=== PATIENT | female | born 1965 | race Caucasian/White ===

== ENCOUNTER 2025-02-22 08:46 | Observation (INO) ==
--- NOTE | 2025-02-22 09:19 | Emergency Department Note ---
Impression & Plan Cellulitis of right leg, Marfan syndrome, On warfarin therapy ED Provider Note NAME: JUSTIN MONTOYA AGE: 59 SEX: F : 1965 ARRIVES VIA: Walk-In INFORMANT: Patient ED PROVIDER(S): Chris Razo MD CHIEF COMPLAINT: Cellulitis, referred. PLAN: Disposition: Admit MEDICAL DECISION MAKING: The patient is a pleasant 59-year-old woman with a past medical history of Marfan syndrome, history of aortic dissection, status post mechanical aortic valve repair on warfarin, hypertension who presents to the emergency department via walk-in for evaluation and treatment of cellulitis of her right lower leg which is been ongoing for the past week or so where she reports she was seen in urgent care and started on Bactrim but had no improvement. She was [place] [facility] was [place] a family member and decided to have this reassessed. She was started on clindamycin in addition to her Bactrim but denies any improvement. The patient wonders whether or not this may have been triggered by minor scratch by her small dogs but denies ever having any wounds. She subsequently saw her PCP office today and was referred to emergency department for admission and IV antibiotics. Patient reports having a history of penicillin allergy as a child where she developed hives. She understands that she also developed hives following prophylactic antibiotics after her aortic surgery and under still would that this was a cephalosporin but acknowledges that she was not aware of whether or not this was a concern for the entire class or not and is in agreement of trying different generations to assess for tolerance. She has any fevers, chills, GI or symptoms. She denies any difficulty bearing weight on her right lower extremity or ranging her ankle. Of note, she notes her INR was elevated yesterday above 4 and so she held her dose yesterday evening. On evaluation patient no distress, afebrile stable vital signs. She exhibits erythema of the distal right lower leg/ankle extending medially. There is mild warmth and edema without induration or crepitus. WBC 4K without neutrophilia or left shift. ESR is mildly elevated at 35 and CRP 7.5, nonspecific. Chemistry without metabolic acidosis. INR 3.4. Broaden antibiotic coverage initiated with IV ceftriaxone and daptomycin. [facility], with Dr. Bertrand [facility] hospitalist who will evaluate the patient for admission. Further management per admitting team. Triage Nursing notes reviewed and agree them. Prior/external medical records reviewed Vital Signs: reviewed Differential diagnosis: Cellulitis, abscess, MRSA infection, DVT, necrotizing fasciitis, dermatitis, drug eruption, allergic reaction, as well as other pathologies. ER treatment provided: See below. Diagnostics interpreted by me: Cardiac Monitoring: An order for continuous cardiac monitoring was placed and demonstrated normal sinus rhythm, 84 bpm, no ectopy. Laboratory studies: See below Consultation(s): Case was discussed with Denise Morales, [facility] PAC, with Dr. Bertrand [facility] hospitalist who will evaluate the patient for admission. HPI: Per MDM. ROS: See above HPI for pertinent positives & negatives. A total of 10 systems reviewed and were otherwise negative. VITALS:See Below PHYSICAL EXAMINATION: GENERAL: Awake, alert, well-appearing, in no distress HENT: Normocephalic, atraumatic. Oropharynx with dry mucous membranes and otherwise unremarkable. EYES: Normal conjunctiva. Sclera non-icteric. NECK: Supple. No nuchal rigidity. FROM. No JVD. RESPIRATORY: Clear to auscultation. CARDIAC: Regular rate, normal rhythm. Extremities warm and well perfused. Pulses equal. ABDOMEN: Soft, non-distended. No tenderness to palpation. No rebound or guarding. No masses. MUSCULOSKELETAL: Chest examination reveals no tenderness. The back is symmetrical on inspection without obvious abnormality. There is no CVA tenderness to palpation. No joint edema. LOWER EXTREMITIES: Erythema of the distal right lower leg/ankle extending medially. There is mild warmth and edema without induration or crepitus. NEURO: Normal sensorium. No sensory or motor deficits noted. SKIN: No rash or jaundice noted. 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 Beliefs That Will Affect Care: None marital status: Current Living Situation: Spouse current occupational status: employed Feels Safe at Home: Yes Assistive Devices: Glasses Allergies Allergies Allergy/AdvReac Type Severity Reaction Status Date / Time Iodinated Contrast Media Allergy Anaphylaxis Verified 06/26/18 08:54 [Iodinated Contrast- Oral and IV Dye] Penicillins Allergy Hives Verified 06/26/18 08:53 Home Meds Home Medications Medication Instructions Recorded Confirmed aspirin 81 mg tablet,delayed 0 mg PO DAILY 06/26/18 02/22/25 release cetirizine 10 mg tablet (Zyrtec) 0 mg PO DAILY 06/26/18 02/22/25 cholecalciferol (vitamin D3) 25 0 unit PO DAILY 06/26/18 02/22/25 mcg (1,000 unit) tablet (Vitamin D3) diltiazem HCl 120 mg 120 mg PO DAILY 06/26/18 02/22/25 capsule,extended release 12 hr hydrochlorothiazide 12.5 mg tablet 12.5 mg PO DAILY 06/26/18 02/22/25 alprazolam 0.5 mg tablet 0.5 mg PO BID PRN Other 02/22/25 02/22/25 desvenlafaxine succinate 100 mg 100 mg PO DAILY 02/22/25 02/22/25 tablet,extended release 24 hr fluticasone propionate 230 2 puff inhalation BID 02/22/25 02/22/25 mcg-salmeterol 21 mcg/actuation HFA inhaler losartan 50 mg tablet 50 mg PO DAILY 02/22/25 02/22/25 warfarin 6 mg tablet 6 mg PO UD 02/22/25 02/22/25 Results & Data (ED) Vital Signs Vital Signs - 24 hr 02/22/25 08:52 02/22/25 10:16 Temperature 36.1 C L Temperature Source Temporal Artery Scan Pulse Rate 84 Pulse Rate [Left Finger] 72 Respiratory Rate 20 20 Respiratory Effort / Characteristics Non-Labored Spontaneous Non-Labored Spontaneous Respiratory Depth Normal Normal Respiratory Pattern Regular Regular Blood Pressure 121/66 Blood Pressure [Left Arm] 155/64 H Blood Pressure Mean 84 Blood Pressure Mean [Left Arm] 94 Pulse Oximetry 95 96 Oxygen Delivery Method Room Air Room Air Sepsis Recent Fever Within 48 Hours No Sepsis New/Unexplained Change in Mental Status N/A Sepsis Action Taken by Nursing No Action Required Laboratory Data Attestation: I reviewed the patient's lab results. 02/22/25 09:04 02/22/25 09:04 Lab Results 02/22/25 Range/Units 09:04 WBC 4.02 L (4.8-10.8) K/ul RBC 4.51 (4.20-5.40) M/uL Hgb 12.7 (12.0-16.0) g/dl Hct 39.7 (37.0-47.0) % MCV 88.0 (80.0-100.0) fL MCH 28.2 (25.0-34.0) pg MCHC 32.0 (32.0-36.0) g/dL RDW Std Deviation 47.3 H (36.4-46.3) fL RDW Coeff of Crow 14.6 H (11.5-14.5) % Plt Count 337 (130-400) K/uL MPV 10.2 (9.4-12.4) fL Immature Gran % (Auto) 0.2 % Neut % (Auto) 60.8 % Lymph % (Auto) 21.6 % [place] % (Auto) 14.4 % Eos % (Auto) 2.0 % Baso % (Auto) 1.0 % Neut # (Auto) 2.44 (1.40-6.50) K/uL Lymph # (Auto) 0.87 L (1.20-3.40) K/uL [place] # (Auto) 0.58 (0.11-0.59) K/uL Eos # (Auto) 0.08 (0.00-0.50) K/uL Baso # (Auto) 0.04 (0.00-0.20) K/uL Immature Gran # (Auto) 0.01 (0.01-0.20) K/uL ESR 35 H (0-30) mm/hr PT 33.2 H (9.0-12.0) Seconds INR 3.4 H (0.9-1.1) Sodium 137 (136-145) mmol/L Potassium 3.8 (3.5-5.1) mmol/L Chloride 104 (98-107) mmol/L Carbon Dioxide 27 (21-32) mmol/L Anion Gap 6 (3-11) BUN 19 (6-23) mg/dl Creatinine 0.74 (0.6-1.2) mg/dl Est Cr Clr Drug Dosing 84.5 ml/min eGFR 92.57 BUN/Creatinine Ratio 25.7 H (10-20) Glucose 91 (70-99(Fasting)) mg/dl Calcium 8.6 (8.6-10.3) mg/dl Total Bilirubin 0.3 (0.2-1.0) mg/dl AST 25 (13-39) U/L ALT 15 (7-52) U/L Alkaline Phosphatase 86 (34-104) U/L C-Reactive Protein 7.44 H (0-0.5) mg/dl Total Protein 7.1 (6.0-8.3) gm/dl Albumin 4.2 (3.4-5.0) gm/dl Globulin 2.9 (2.5-4.0) gm/dl Albumin/Globulin Ratio 1.4 (0.9-2) Administered Medications Alprazolam (Alprazolam 0.25 Mg Tablet) 0.25 mg PO BID PRN PRN Reason: Anxiety/Insomnia Stop: 03/24/25 14:06 Last Admin: 02/22/25 21:06 Dose: 0.25 mg Documented By: SP Diltiazem HCl (Diltiazem Hcl 120 Mg Capcr) 120 mg PO BID [facility] Stop: 03/24/25 20:59 Last Admin: 02/22/25 21:06 Dose: 120 mg Documented By: SP Miscellaneous (Desvenlafaxine 100mg: Order Awaiting Action) 1 each N/A QS [facility] Stop: 03/24/25 15:59 Last Admin: 02/22/25 18:19 Dose: Not Given Documented By: AU Oxycodone HCl (Oxycodone Hcl Ir 5 Mg Tab (Immediate Release)) 5 mg PO Q4H PRN PRN Reason: Moderate Pain (Scale 4, 5, 6) Stop: 03/08/25 14:06 Last Admin: 02/22/25 15:34 Dose: 5 mg Documented By: AVM Discontinued Medications Sodium Chloride (Nss) 1,000 mls @ 999 mls/hr IV .Q1H1M ONE Stop: 02/22/25 10:13 Last Infusion: 02/22/25 11:00 Dose: Infused Documented By: Admin: 02/22/25 09:35 Dose: 999 mls/hr Documented By: KHOA Ceftriaxone Sodium (Rocephin) 2,000 mg in 50 mls @ 100 mls/hr IV NOW STA Stop: 02/22/25 09:46 Last Infusion: 02/22/25 10:59 Dose: Infused Documented By: Admin: 02/22/25 09:35 Dose: 100 mls/hr Documented By: KHOA Daptomycin 525 mg/ Syringe 10.5 mls @ 5.25 mls/min IV NOW STA; Protocol Stop: 02/22/25 09:19 Last Admin: 02/22/25 10:14 Dose: 5.25 mls/min Documented By: KHOA Acetaminophen (Ofirmev) 1,000 mg in 100 mls @ 400 mls/hr IV NOW STA Stop: 02/22/25 09:32 Last Infusion: 02/22/25 11:00 Dose: Infused Documented By: Admin: 02/22/25 09:55 Dose: 400 mls/hr Documented By: KHOA Discharge Plan Visit Data Chief Complaint: Infection Stated Complaint: R LEG CELLULITIS, AROUND ANKLE AND SPREADING UP ED Provider: Chris Razo Discharge Problem: Cellulitis of right leg, Marfan syndrome, On warfarin therapy Patient Disposition: Admitted As Inpatient Condition: Fair Discharge Instructions Interventions: ED Discharge Assessment Last Done: 02/22/25 16:25
[2025-02-22 09:33] LABS: Hematocrit (blood only) 39.7 % (37.0-47.0); Hemoglobin 12.7 g/dl (12.0-16.0); Immature Granulocytes # (auto) 0.01 K/uL (0.01-0.20); Immature Granulocytes % (auto) 0.2 %; Mean Corpuscular Hemoglobin 28.2 pg (25.0-34.0); Mean Corpuscular Volume 88.0 fL (80.0-100.0); Platelet Count 337 K/uL (130-400); RDW Standard Deviation 47.3 fL (36.4-46.3); Red Blood Count 4.51 M/uL (4.20-5.40); White Blood Count 4.02 K/ul (4.8-10.8)
[2025-02-22] MEDS: cefTRIAXone SODIUM 2,000 MG/50 ML BAG IV STA (09:35)
[2025-02-22] MEDS: SODIUM CHLORIDE 0.9% 1,000 ML IV ONE (09:35)
[2025-02-22 09:47] LABS: INR 3.4 (0.9-1.1); Prothrombin Time 33.2 Seconds (9.0-12.0)
[2025-02-22 09:53] LABS: Alanine Aminotransferase 15.0 U/L (7-52); Albumin Globulin Ratio 1.4 (0.9-2); Alkaline Phosphatase 86.0 U/L (34-104); Anion Gap 6.0 (3-11); Bilirubin,Total 0.3 mg/dl (0.2-1.0); Blood Urea Nitrogen 19.0 mg/dl (6-23); Calcium 8.6 mg/dl (8.6-10.3); Carbon Dioxide 27.0 mmol/L (21-32); Chloride 104.0 mmol/L (98-107); Creatinine Clr Calc Pharmacy 84.5 ml/min; Globulin 2.9 gm/dl (2.5-4.0); Glucose 91.0 mg/dl (70-99(Fasting)); Potassium 3.8 mmol/L (3.5-5.1); Sodium 137.0 mmol/L (136-145); Total Protein 7.1 gm/dl (6.0-8.3)
[2025-02-22] MEDS: ACETAMINOPHEN 1,000 MG/100 ML VIAL IV STA (09:55)
[2025-02-22] MEDS: DAPTOmycin 525 MG in SYRINGE 0 ML IV STA (10:14)
--- NOTE | 2025-02-22 10:24 | History & Physical Report ---
Date of Service February 22, 2025 Assessment & Plan (1) Cellulitis of right leg: (2) History of heart valve replacement with mechanical valve: (3) Aortic dissection: (4) Marfan syndrome: (5) Hypertension: (6) Asthma: Plan 59yo female presented after failure of outpatient antibiotics with Bactrim/Clindamycin since this past requiring admission for treatment of cellulitis with IV antibiotics. ?related to possible scratch from dogs with feeding but no clear opening. No recent tick bites/fever/chills. On coumadin w/ mechanical aortic valve replacement and INR never below goal and actually 4.3 yesterday and held last evening with INR 3.4 today with goal 2-3. Suspect eleva tion in setting o bactrim use, no bleeding reported and is on baby aspirin 81mg daily. #RLE Cellulitis Admit med/surg Continue Ceftriaxone/Daptmycin (received ceftriaxone in ER, monitor for any issues w/ PCN allergy, will make benadryl available prn/patient to notify of any issues) Elevation Pain control Antiemetic as needed Wound care PT eval to ensure no needs at dc Monitor labs/exam on repeat, defer imaging at this time and will monitor response to IV abx #Aortic valve replacement, chronic anticoagulation use Aortic valve placement >10 years ago, also aorta repair for dissection On coumadin 6mg daily, follows [facility] INR 3.4 on admission, reports was 4.3 prior this weekend but held her dose last evening - suspect INR in AM to be in goal but with ongoing antibiotics will order for 02/23 unless felt otherwise by supervising provider during evaluation Monitor daily INR #HTN - continue diltiazem 120mg, reports taking twice daily and have adjusted such. Also on losartan 50mg dialy. BP stable/monitoring on home medications #HLD - no longer on statin, maintained with diet/exercise per patient. #Mood/depression - stable, on pristiq and non-formulary. Asked to see if able to bring in. Have continued low dose xanax BID prn as takes half tablet as needed. DVT proph: INR above goal, no concerns for DVT at this time. Coumadin coumadin in AM/INR daily. Dispo: admit med/surg for IV antibiotics. PT consulted for completeness History of Present Illness Chief Complaint: right leg swelling/redness, failure outpatient antibiotics Primary Care Provider: Gosia Ye, OTR 59yo female with PMHx marfans, aortic dissection/aortic valve replacement, HTN, HLD presented with redness/swelling to the right lower leg since this past concerning for cellulitis. Allergy to PCN w/ hives. Initially placed on Bactrim by PCP but without improvement but placed on Clindamycin on Saturday morning. Patient evaluated in C7, currently resting in bed. Reports being hungry. No pain at present but reports was on Bactrim since this past and did not have any improvement and was traveling this weekend and went to [facility] as did not have improvement and they added Clindamycin. She has cantu on her leg for the "dark red" and "light red" from the cellulitis. Reports history of cellulitis over a decade ago. No antibiotic resistance reported in the past. Tolerated the ER antibiotics and discussed admission for continued antibiotics/monitoring. No history of gout. No trauma/open wound but does report she has dogs and that they get excited during feeding time and that she might have had a faint scratch as the source initially. On coumadin 6mg daily but held her dose last evening. Reports INR was 4.3 yesterday, currently 3.4. Goal INR 2-3 for history mechanical aortic valve (as well as grafting aorta due to dissection). No history of clot in the past but does report has had positive ddimer in the past. No fever/chills, chest pain, shortness of breath, abdominal pain, nausea/vomiting/diarrhea at this time. Confirmed home medications: Diltiazem 120mg BID HCTZ 12.5mg ISMN -- NO MORE Losartan 50mg once daily Pristiq 100mg -- someone to bring in as non-formulary Simvastatin - no longer, refuses, control through diet. Coumadin 6mg daily Aspirin 81mg Lamotrigine 100mg daily Xanax 0.5mg -- 1/2 tablet as needed Given Ceftriaxone/Daptomycin in ER. Agreeable to admission for ongoing antibiotic for cellulitis. Hungry and hasn't eaten yet today, RN in ER notified to provide something in meantime. Full code as discussed. Allergies Allergy/AdvReac Type Severity Reaction Status Date / Time Iodinated Contrast Media Allergy Anaphylaxis Verified 06/26/18 08:54 [Iodinated Contrast- Oral and IV Dye] Penicillins Allergy Hives Verified 06/26/18 08:53 Home Medications Medication Instructions Recorded Confirmed Type aspirin 81 mg tablet,delayed 0 mg PO DAILY 06/26/18 02/22/25 History release cetirizine 10 mg tablet (Zyrtec) 0 mg PO DAILY 06/26/18 02/22/25 History cholecalciferol (vitamin D3) 25 0 unit PO DAILY 06/26/18 02/22/25 History mcg (1,000 unit) tablet (Vitamin D3) diltiazem HCl 120 mg 120 mg PO DAILY 06/26/18 02/22/25 History capsule,extended release 12 hr hydrochlorothiazide 12.5 mg tablet 12.5 mg PO DAILY 06/26/18 02/22/25 History alprazolam 0.5 mg tablet 0.5 mg PO BID PRN Other 02/22/25 02/22/25 History desvenlafaxine succinate 100 mg 100 mg PO DAILY 02/22/25 02/22/25 History tablet,extended release 24 hr fluticasone propionate 230 2 puff inhalation BID 02/22/25 02/22/25 History mcg-salmeterol 21 mcg/actuation HFA inhaler losartan 50 mg tablet 50 mg PO DAILY 02/22/25 02/22/25 History warfarin 6 mg tablet 6 mg PO UD 02/22/25 02/22/25 History Past Med/Surg History Problem List (Updated 02/22/25 @ 10:57 by Denise Morales PA-C) Cellulitis of right leg Medical History Hypertension Asthma Aortic dissection Marfan syndrome Surgical History Status post aortic dissection repair History of heart valve replacement with mechanical valve Social History Smoking Status: Never smoker Hx Alcohol Use: Yes Hx Substance Use: No marital status: Current Living Situation: Spouse current occupational status: employed Feels Safe at Home: Yes Review of Systems Review of Systems: All systems reviewed & are unremarkable except as noted in HPI & below Physical Exam Physical Exam: General: 59yo female, marfanoid appearance, laying in bed, NAD HEENT: head atraumatic, normocephalic, mmm, trachea midline Resp: even/unlabored, no wheezing/rales, on room air CV: regular, +systolic click c/w aortic valve replacement, no pitting edema/calf tenderness, pulses present, cap refill wnl GI: +BS, slight distended but soft/nontender no french MSK/Neuro/Skin: not confused, no slurred speech, answering questions appropriately RLE w/ erythema from ankle to mid gutierrez, within markings +tenderness/warmth, edema to mid gutierrez - some blistering to medial ankle No purulent drainage/open lesions at this time pulses present/intact, cap refill wnl Psych: AOx3, cooperative with exam Results & Data Results & Data Vital Signs (Past 12 Hours) Vital Signs Temp Pulse Pulse Resp BP BP Pulse Ox 02/22/25 10:16 72 20 155/64 H 96 02/22/25 08:52 36.1 C L 84 20 121/66 95 O2 Del Method 02/22/25 10:16 Room Air 02/22/25 08:52 Room Air Laboratory Results 02/22/25 Range/Units 09:04 WBC 4.02 L (4.8-10.8) K/ul RBC 4.51 (4.20-5.40) M/uL Hgb 12.7 (12.0-16.0) g/dl Hct 39.7 (37.0-47.0) % MCV 88.0 (80.0-100.0) fL MCH 28.2 (25.0-34.0) pg MCHC 32.0 (32.0-36.0) g/dL RDW Std Deviation 47.3 H (36.4-46.3) fL RDW Coeff of Crow 14.6 H (11.5-14.5) % Plt Count 337 (130-400) K/uL MPV 10.2 (9.4-12.4) fL Immature Gran % (Auto) 0.2 % Neut % (Auto) 60.8 % Lymph % (Auto) 21.6 % [place] % (Auto) 14.4 % Eos % (Auto) 2.0 % Baso % (Auto) 1.0 % Neut # (Auto) 2.44 (1.40-6.50) K/uL Lymph # (Auto) 0.87 L (1.20-3.40) K/uL [place] # (Auto) 0.58 (0.11-0.59) K/uL Eos # (Auto) 0.08 (0.00-0.50) K/uL Baso # (Auto) 0.04 (0.00-0.20) K/uL Immature Gran # (Auto) 0.01 (0.01-0.20) K/uL ESR 35 H (0-30) mm/hr PT 33.2 H (9.0-12.0) Seconds INR 3.4 H (0.9-1.1) Sodium 137 (136-145) mmol/L Potassium 3.8 (3.5-5.1) mmol/L Chloride 104 (98-107) mmol/L Carbon Dioxide 27 (21-32) mmol/L Anion Gap 6 (3-11) BUN 19 (6-23) mg/dl Creatinine 0.74 (0.6-1.2) mg/dl Est Cr Clr Drug Dosing 84.5 ml/min eGFR 92.57 BUN/Creatinine Ratio 25.7 H (10-20) Glucose 91 (70-99(Fasting)) mg/dl Calcium 8.6 (8.6-10.3) mg/dl Total Bilirubin 0.3 (0.2-1.0) mg/dl AST 25 (13-39) U/L ALT 15 (7-52) U/L Alkaline Phosphatase 86 (34-104) U/L C-Reactive Protein 7.44 H (0-0.5) mg/dl Total Protein 7.1 (6.0-8.3) gm/dl Albumin 4.2 (3.4-5.0) gm/dl Globulin 2.9 (2.5-4.0) gm/dl Albumin/Globulin Ratio 1.4 (0.9-2) Supervising Physician Co-Signing Physician Notes The patient was seen by me. The chart was reviewed. Case discussed with KIRK Giron. Agree with assessment and plan PG Care Time/CCT Total # of Minutes Spent Total Time Spent with Patient: Total time spent is greater than 50% in coordination of care (as documented) at patient's floor/unit and/or counseling patient: Coding Level of Care Code 76182 INT INP/OBS CARE MIN Diagnoses Cellulitis of right leg L03.115 History of heart valve replacement with mechanical valve Z95.2 Aortic dissection I71.00 Marfan syndrome Q87.40 Hypertension I10 Asthma J45.909
[2025-02-22] MEDS ORDERED: ONDANSETRON INJ 2 MG/ML 2 ML VIAL IV PRN (10:52)
[2025-02-22] MEDS ORDERED: ACETAMINOPHEN 500 MG TAB PO PRN (14:07)
[2025-02-22] MEDS ORDERED: diphenhydrAMINE 50 MG/ML VIAL IV PRN (14:07)
[2025-02-23 05:36] LABS: Hematocrit (blood only) 36.6 % (37.0-47.0); Hemoglobin 11.8 g/dl (12.0-16.0); Immature Granulocytes # (auto) 0.01 K/uL (0.01-0.20); Immature Granulocytes % (auto) 0.2 %; Mean Corpuscular Hemoglobin 28.3 pg (25.0-34.0); Mean Corpuscular Volume 87.8 fL (80.0-100.0); Platelet Count 285 K/uL (130-400); RDW Standard Deviation 46.4 fL (36.4-46.3); Red Blood Count 4.17 M/uL (4.20-5.40); White Blood Count 4.06 K/ul (4.8-10.8)
[2025-02-23 05:56] LABS: Alanine Aminotransferase 13.0 U/L (7-52); Albumin Globulin Ratio 1.4 (0.9-2); Alkaline Phosphatase 68.0 U/L (34-104); Anion Gap 5.0 (3-11); Bilirubin,Total 0.3 mg/dl (0.2-1.0); Blood Urea Nitrogen 20.0 mg/dl (6-23); Calcium 8.1 mg/dl (8.6-10.3); Carbon Dioxide 27.0 mmol/L (21-32); Chloride 107.0 mmol/L (98-107); Creatinine Clr Calc Pharmacy 88.1 ml/min; Globulin 2.4 gm/dl (2.5-4.0); Glucose 93.0 mg/dl (70-99(Fasting)); Magnesium 2.0 mg/dl (1.7-2.4); Potassium 3.4 mmol/L (3.5-5.1); Sodium 139.0 mmol/L (136-145); Total Protein 5.8 gm/dl (6.0-8.3)
[2025-02-23 06:12] LABS: INR 2.0 (0.9-1.1); Prothrombin Time 20.2 Seconds (9.0-12.0)
--- NOTE | 2025-02-23 07:50 | Hospitalist Progress Note ---
Date of Service February 23, 2025 Assessment & Plan (1) Cellulitis of right leg: (2) History of heart valve replacement with mechanical valve: (3) Aortic dissection: (4) Marfan syndrome: (5) Hypertension: (6) Asthma: Plan 59yo female presented after failure of outpatient antibiotics with Bactrim/Clindamycin since this past requiring admission for treatment of cellulitis with IV antibiotics. ?related to possible scratch from dogs with feeding but no clear opening. No recent tick bites/fever/chills. On coumadin w/ mechanical aortic valve replacement and INR never below goal and actually 4.3 yesterday and held last evening with INR 3.4 today with goal 2-3. Suspect eleva tion in setting o bactrim use, no bleeding reported and is on baby aspirin 81mg daily. #RLE Cellulitis Continue Ceftriaxone/Daptomycin Pain control -- trial toradol 10mg IV x 1 for inflammation/edema/pain control. Tylenol/oxycodone available. Continue elevation Wound care Therapy evals Appears improved at this time/stable however will monitor CRP w/ AM labs. Consideration to transition to Clinda and monitor to ensure improvement as suspect just wasn't given enough time but if not will plan for further imaging for evaluation as no blood cx on admission but doesn't appear septic and was on abx prior. ?reaction to Bactrim w/ the blistered appearance/timeline ~4 days from start. Allergy to iodine and can plan for MRI w/w/o in AM if not improved as well Monitor labs/exam in AM #Aortic valve replacement, chronic anticoagulation use Aortic valve placement >10 years ago, also aorta repair for dissection On coumadin 6mg daily, follows [facility] INR 3.4 on admission (reports was 4.3 but skipped dose PM 02/21) and was held on admission INR 2.0 and to resume today/INR in AM. Can give shot Lovenox if not in range #HTN - continue diltiazem 120mg, reports taking twice daily and have adjusted such. Also on losartan 50mg dialy. BP stable/monitoring on home medications #HLD - no longer on statin, maintained with diet/exercise per patient. #Mood/depression - stable, on pristiq and non-formulary --> brought in today and sent to pharmacy Xanax available prn Lamictal 100mg daily resumed/continued DVT proph: coumadin, INR in AM Dispo: continued inpatient stay on IV abx, possible dc next 24-48hr pending response vs need for MRI/imaging Admission and Anticipated Discharge Date Admission Date: February 22, 2025 Supervising Physician Co-Signing Physician Notes The patient was not seen by me. The chart was reviewed. Case discussed with KIRK Giron. Agree with assessment and plan Subjective Eval this afternoon, at bedside. Got showered this morning, believes cellulitis might be little better but concerns about possibly not. Discussed WBC stable, afebrile. Blister like appearance to medial ankle improved. Ongoing pain/swelling/warmth, discussed trial toradol IV, agreeable. Cautious NSAIDs w/ coumadin but ok to use occasionally and will monitor for issues. Discussed abx should cover for most except pseudomonas and no hx of such but if any worsening consideration for further imaging. Hx allergy to iodine contrast, likely unable to perform CT but will consider MRI if tolerated. Discussed could also have aspect of reaction from the Bactrim given time line for symptoms and no prior use but could trial switching to Clindamycin in AM if improving/monitor on such given concerns for dc too early. brought in pristiq/home med, sent to pharmacy. INR 2.0, coumadin resuming today and monitoring. Concerns about 6mg as not eating as much greens but reassured will monitor/reach out to specalist if needed. No fever/chills, chest pain, shortness of breath, nausea/vomiting. Questions/concerns addressed at this time. Physical Exam Physical Exam: General: 59yo female, marfanoid appearance, laying in bed, NAD, at bedside, legs dependent at the side of the bed HEENT: head atraumatic, normocephalic, mmm, trachea midline Resp: even/unlabored, no wheezing/rales, on room air CV: regular, +systolic click c/w aortic valve replacement, pulses present, cap refill wnl GI: +BS, slight distended but soft/nontender no french MSK/Neuro/Skin: not confused, no slurred speech, answering questions appropriately RLE w/ erythema from ankle to mid gutierrez, no further spread up leg, appears toe sewer pink with less blistered appearance to medial ankle remains with +erythema, +warmth + tenderness but does appear improved no drainage/opening at this time pulses present, cap refill wnl Psych: AOx3, cooperative with exam Results & Data Results & Data Vital Signs (Past 12 Hours) Vital Signs Temp Pulse Resp BP Pulse Ox O2 Del Method 02/23/25 07:22 36.7 C 73 16 163/74 H 96 Room Air 02/22/25 20:02 36.9 C 75 16 114/62 94 Room Air Laboratory Results 02/23/25 02/23/25 Range/Units 05:03 04:43 WBC 4.06 L (4.8-10.8) K/ul RBC 4.17 L (4.20-5.40) M/uL Hgb 11.8 L (12.0-16.0) g/dl Hct 36.6 L (37.0-47.0) % MCV 87.8 (80.0-100.0) fL MCH 28.3 (25.0-34.0) pg MCHC 32.2 (32.0-36.0) g/dL RDW Std Deviation 46.4 H (36.4-46.3) fL RDW Coeff of Crow 14.4 (11.5-14.5) % Plt Count 285 (130-400) K/uL MPV 9.8 (9.4-12.4) fL Immature Gran % (Auto) 0.2 % Neut % (Auto) 56.4 % Lymph % (Auto) 24.1 % [place] % (Auto) 12.1 % Eos % (Auto) 6.2 % Baso % (Auto) 1.0 % Neut # (Auto) 2.29 (1.40-6.50) K/uL Lymph # (Auto) 0.98 L (1.20-3.40) K/uL [place] # (Auto) 0.49 (0.11-0.59) K/uL Eos # (Auto) 0.25 (0.00-0.50) K/uL Baso # (Auto) 0.04 (0.00-0.20) K/uL Immature Gran # (Auto) 0.01 (0.01-0.20) K/uL PT 20.2 H (9.0-12.0) Seconds INR 2.0 H (0.9-1.1) Sodium 139 (136-145) mmol/L Potassium 3.4 L (3.5-5.1) mmol/L Chloride 107 (98-107) mmol/L Carbon Dioxide 27 (21-32) mmol/L Anion Gap 5 (3-11) BUN 20 (6-23) mg/dl Creatinine 0.71 (0.6-1.2) mg/dl Est Cr Clr Drug Dosing 88.1 ml/min eGFR 97.28 BUN/Creatinine Ratio 28.2 H (10-20) Glucose 93 (70-99(Fasting)) mg/dl Calcium 8.1 L (8.6-10.3) mg/dl Magnesium 2.0 (1.7-2.4) mg/dl Total Bilirubin 0.3 (0.2-1.0) mg/dl AST 20 (13-39) U/L ALT 13 (7-52) U/L Alkaline Phosphatase 68 (34-104) U/L Total Protein 5.8 L (6.0-8.3) gm/dl Albumin 3.4 (3.4-5.0) gm/dl Globulin 2.4 L (2.5-4.0) gm/dl Albumin/Globulin Ratio 1.4 (0.9-2) Hepatitis C Ab Screen Negative (Negative) PG Care Time/CCT Total # of Minutes Spent Total Time Spent with Patient: Total time spent is greater than 50% in coordination of care (as documented) at patient's floor/unit and/or counseling patient: Coding Level of Care Code 93087 SUB INP/OBS CARE 3/50MIN Diagnoses Cellulitis of right leg L03.115 History of heart valve replacement with mechanical valve Z95.2 Aortic dissection I71.00 Marfan syndrome Q87.40 Hypertension I10 Asthma J45.909
[2025-02-23] MEDS: ASPIRIN 81 MG ECTAB PO SCH (07:51)
[2025-02-23] MEDS: LOSARTAN POTASSIUM 50 MG TAB PO SCH (07:52)
[2025-02-23] MEDS: FLUTICASONE/VILANTEROL 200/25MCG 14 PUFFS/INHALER INH SCH (07:53)
[2025-02-23] MEDS ORDERED: Nursing to Pharmacy Communication SCH (08:15)
[2025-02-23] MEDS: DAPTOmycin 450 MG in SYRINGE 0 ML IV SCH (08:16)
[2025-02-23] MEDS: POTASSIUM CHLORIDE CRTAB 20 MEQ TABCR PO STA (08:16)
[2025-02-23] MEDS: hydroCHLOROthiazide 25 MG TAB PO SCH (09:18)
[2025-02-23] MEDS: lamoTRIgine 100 MG TAB PO SCH (09:22)
[2025-02-23] MEDS: cefTRIAXone SODIUM 2,000 MG/50 ML BAG IV SCH (09:23)
[2025-02-23] MEDS: DESVENLAFAXINE SUCCINATE ER TABLET PO SCH (15:56)
[2025-02-23] MEDS: KETOROLAC TROMETHAMINE 15 MG/ML VIAL IV ONE (15:56)
[2025-02-23] MEDS: WARFARIN SOD 6 MG TAB PO SCH (15:58)
[2025-02-24 08:01] LABS: Hematocrit (blood only) 39.3 % (37.0-47.0); Hemoglobin 12.6 g/dl (12.0-16.0); Immature Granulocytes # (auto) 0.01 K/uL (0.01-0.20); Immature Granulocytes % (auto) 0.2 %; Mean Corpuscular Hemoglobin 27.9 pg (25.0-34.0); Mean Corpuscular Volume 86.9 fL (80.0-100.0); Platelet Count 331 K/uL (130-400); RDW Standard Deviation 45.0 fL (36.4-46.3); Red Blood Count 4.52 M/uL (4.20-5.40); White Blood Count 4.92 K/ul (4.8-10.8)
--- NOTE | 2025-02-24 08:07 | Hospitalist Progress Note ---
Date of Service February 24, 2025 Assessment & Plan (1) Cellulitis of right leg: (2) History of heart valve replacement with mechanical valve: (3) Aortic dissection: (4) Marfan syndrome: (5) Hypertension: (6) Asthma: Plan 59yo female presented after failure of outpatient antibiotics with Bactrim/Clindamycin since this past requiring admission for treatment of cellulitis with IV antibiotics. ?related to possible scratch from dogs with feeding but no clear opening. No recent tick bites/fever/chills. On coumadin w/ mechanical aortic valve replacement and INR never below goal and actually 4.3 yesterday and held last evening with INR 3.4 today with goal 2-3. Suspect elevation in setting o bactrim use, no bleeding reported and is on baby aspirin 81mg daily. #RLE Cellulitis Ceftriaxone/Daptomycin Pain control -tylenol/oxycodone. Toradol 10mg IV x 1 w/ reported improvement and repeat dose 15mg IV for today/prn available Elevation CRP 7.4--> 4.8 Consideration for imaging if any worsening but appears improved today - consideration to transition back to Clinda in AM vs other pending course #Aortic valve replacement, chronic anticoagulation use Aortic valve placement >10 years ago, also aorta repair for dissection On coumadin 6mg daily, follows [facility] INR 3.4 on admission (prior 4.3, held her PM dose 02/21) INR 2.0 on 02/23 and resumed coumadin 6mg INR 1.4 and ordered Lovenox 80mg BID for 02/24 and continue coumadin to bridge INR in AM #HTN - continue diltiazem 120mg BID, losartan daily BP stable 136/70 and monitoring #HLD - no longer on statin, maintained with diet/exercise per patient. #Mood/depression - stable, continue pristiq/lamictal. xanax available as needed #IV infiltration - L arm, leaking overnight and removed. Nursing reported no infiltration but does appear w/ some edema to region but pulses/sensation intact. Warm compress/elevation - monitor for any issues, have added lovenox SQ bid given INR but pulses present/doesn't appear w/ DVT at this time DVT proph: coumadin/lovenox Dispo: continued inpatient stay on IV abx and pain control and hopeful dc next 24hr pending course Admission and Anticipated Discharge Date Admission Date: February 22, 2025 Supervising Physician Co-Signing Physician Notes The patient was not seen by me. The chart was reviewed. Case discussed with KIRK Giron. Agree with assessment and plan Subjective Patient evaluated this morning, resting in bed. Believes leg improving, able to bear weight on it without as much pain, appears less red/warm. Did discuss INR/Lovenox injections which she reports she dislikes but understands and also reports going to eat less leafy greens today. She reports wanting to continue with IV abx for another day prior to home. IV infiltrated/leaking to LUE but initially wanted to hold off another IV but did believe toradol helpful and agreeable to placement to receive. No fever/chills, chest pain/sob reported. Questions/concerns addressed at this time. Physical Exam 2 Physical Exam: General: 59yo female sitting up in bed, NAD, reports feeling better/able to ambulate a little better today, marfan appearance HEENT: head atraumatic, normocephalic, mmm, trachea midline Resp: even/unlabored, no wheezing/rales, on room air CV: regular, +systolic click c/w aortic valve replacement, pulses present, cap refill wnl LUE - IV site infiltrated, pulses/sensation intact GI: +BS, soft/NT no french MSK/Neuro/Skin: not confused, no slurred speech, answering questions appropriately, moving all extremities RLE w/ improvement in erythema, in markings, less pink/warm, decreased tenderness to medial ankle, much improved on lateral ankle, no further blistered appearance pulses present, cap refill wnl Psych: AOx3, cooperative with exam Results & Data Results & Data Vital Signs (Past 12 Hours) Vital Signs Temp Pulse Resp BP Pulse Ox O2 Del Method 02/24/25 07:19 36.5 C 71 15 136/70 95 Room Air Laboratory Results 02/24/25 07:28 02/24/25 07:28 INR 1.4 CRP 4.85 PG Care Time/CCT Total # of Minutes Spent Total Time Spent with Patient: Total time spent is greater than 50% in coordination of care (as documented) at patient's floor/unit and/or counseling patient: Coding Level of Care Code 39893 SUB INP/OBS CARE 3/50MIN Diagnoses Cellulitis of right leg L03.115 History of heart valve replacement with mechanical valve Z95.2 Aortic dissection I71.00 Marfan syndrome Q87.40 Hypertension I10 Asthma J45.909
[2025-02-24 08:22] LABS: Anion Gap 6.0 (3-11); Blood Urea Nitrogen 21.0 mg/dl (6-23); Calcium 8.5 mg/dl (8.6-10.3); Carbon Dioxide 29.0 mmol/L (21-32); Chloride 104.0 mmol/L (98-107); Creatinine Clr Calc Pharmacy 91.9 ml/min; Glucose 95.0 mg/dl (70-99(Fasting)); Potassium 4.2 mmol/L (3.5-5.1); Sodium 139.0 mmol/L (136-145)
[2025-02-24 08:24] LABS: INR 1.4 (0.9-1.1); Prothrombin Time 15.2 Seconds (9.0-12.0)
[2025-02-24] MEDS: ENOXAPARIN 80 MG/0.8 ML SYR SQ SCH (10:17)
[2025-02-24] MEDS: KETOROLAC TROMETHAMINE 15 MG/ML VIAL IV PRN (10:17)
[2025-02-25 06:16] LABS: Hematocrit (blood only) 38.3 % (37.0-47.0); Hemoglobin 12.2 g/dl (12.0-16.0); Mean Corpuscular Hemoglobin 28.1 pg (25.0-34.0); Mean Corpuscular Volume 88.2 fL (80.0-100.0); Platelet Count 320 K/uL (130-400); RDW Standard Deviation 45.2 fL (36.4-46.3); Red Blood Count 4.34 M/uL (4.20-5.40); White Blood Count 3.76 K/ul (4.8-10.8)
[2025-02-25 06:33] LABS: Anion Gap 5.0 (3-11); Blood Urea Nitrogen 25.0 mg/dl (6-23); Calcium 8.5 mg/dl (8.6-10.3); Carbon Dioxide 30.0 mmol/L (21-32); Chloride 105.0 mmol/L (98-107); Creatinine Clr Calc Pharmacy 93.3 ml/min; Glucose 93.0 mg/dl (70-99(Fasting)); Potassium 3.9 mmol/L (3.5-5.1); Sodium 140.0 mmol/L (136-145); Uric Acid 4.7 mg/dl (2.6-7.2)
[2025-02-25 07:10] LABS: INR 1.6 (0.9-1.1); Prothrombin Time 16.9 Seconds (9.0-12.0)
[2025-02-25 07:27] VITALS: RESP 16
--- NOTE | 2025-02-25 07:52 | Hospitalist Progress Note ---
Date of Service February 25, 2025 Assessment & Plan (1) Cellulitis of right leg: (2) History of heart valve replacement with mechanical valve: (3) Aortic dissection: (4) Marfan syndrome: (5) Hypertension: (6) Asthma: Plan 59yo female presented after failure of outpatient antibiotics with Bactrim/Clindamycin since this past requiring admission for treatment of cellulitis with IV antibiotics. ?related to possible scratch from dogs with feeding but no clear opening. No recent tick bites/fever/chills. On coumadin w/ mechanical aortic valve replacement and INR never below goal and actually 4.3 yesterday and held last evening with INR 3.4 today with goal 2-3. Suspect eleva tion in setting o bactrim use, no bleeding reported and is on baby aspirin 81mg daily. #RLE Cellulitis Ceftriaxone/Daptomycin IV CRP trending down, 7.4--> 4.8 -> 3.6 Pain control, toradol effective, additional 15mg IV for today. Uric not elevated 4.7 Continue elevation, marking Transitioning to Clindamycin PO for 02/26 AM and if continued improvement can plan to dc on course given supervising provider believes should have covered but possibly not given enough time. Monitor for additional med change/need for imaging #Aortic valve replacement, chronic anticoagulation use Aortic valve placement >10 years ago, also aorta repair for dissection On coumadin 6mg daily, follows [facility] INR 3.4 on admission (prior 4.3, held her PM dose 02/21) INR 2.0 on 02/23 and resumed coumadin 6mg INR 1.4 and ordered Lovenox 80mg BID for 02/24 and continue coumadin to bridge--> INR 1.6 and continues w/ Lovenox and monitoring INR in AM #HTN - continue diltiazem 120mg BID, losartan daily and BP 122/78 and has been continued #HLD - no longer on statin, maintained with diet/exercise per patient. #Mood/depression - stable, continue pristiq/lamictal. xanax available as needed #IV infiltration - L arm, leaking overnight and removed 02/24 Nursing reported no infiltration but does appear w/ some edema to region but pulses/sensation intact. Warm compress/elevation - monitor for any issues, have added lovenox SQ bid given INR but pulses present/doesn't appear w/ DVT at this time Dispo: continued inpatient stay and transitioning to PO abx for am/monitoring through afternoon but if continued improvement by lunch can plan to dc on PO to complete course Remains on lovenox until INR in range Admission and Anticipated Discharge Date Admission Date: February 22, 2025 Supervising Physician Co-Signing Physician Notes The patient was not seen by me. The chart was reviewed. Case discussed with KIRK Giron. Agree with assessment and plan Subjective Eval this morning, cellulitis/pain improved. Discussed additional dose Toradol. Lovenox has been continued. CRP trending down. Discussed transition to Clinda in AM if continued improvement after lunch w/ switch can plan to dc to complete the course. Questions/concerns addressed at this time, support provided for her mom who is on hospice[place] Also inquired if knew any functional medicine doctors in the area, will inquire w/ partners to see if any known individuals locally. Physical Exam Physical Exam: General: 59yo female sitting up in bed, on the phone, NAD HEENT: head atraumatic, mmm, trachea midline Resp: even/unlabored, no wheezing/rales, on room air CV: regular, +systolic click c/w aortic valve replacement, pulses present, cap refill wnl LUE - IV site infiltrated, pulses/sensation intact GI: +BS, soft/NT no french MSK/Neuro/Skin: not confused, no slurred speech, answering questions appropriately, moving all extremities RLE w/ improvement in erythema, within markings, less edematous, less erythema/warmth, no streaking up leg, lateral ankle almost resolved, medial ankle w/ some purplish scab/healing blisters, no open/drainage, cap refill wnl, no appreciable abscess/fluid collection Psych: AOx3, cooperative with exam Results & Data Results & Data Vital Signs (Past 12 Hours) Vital Signs Temp Pulse Resp BP Pulse Ox O2 Del Method 02/25/25 07:25 36.7 C 87 16 122/78 92 Room Air Laboratory Results 02/25/25 Range/Units 05:55 WBC 3.76 L (4.8-10.8) K/ul RBC 4.34 (4.20-5.40) M/uL Hgb 12.2 (12.0-16.0) g/dl Hct 38.3 (37.0-47.0) % MCV 88.2 (80.0-100.0) fL MCH 28.1 (25.0-34.0) pg MCHC 31.9 L (32.0-36.0) g/dL RDW Std Deviation 45.2 (36.4-46.3) fL RDW Coeff of Crow 14.0 (11.5-14.5) % Plt Count 320 (130-400) K/uL MPV 9.2 L (9.4-12.4) fL PT 16.9 H (9.0-12.0) Seconds INR 1.6 H (0.9-1.1) Sodium 140 (136-145) mmol/L Potassium 3.9 (3.5-5.1) mmol/L Chloride 105 (98-107) mmol/L Carbon Dioxide 30 (21-32) mmol/L Anion Gap 5 (3-11) BUN 25 H (6-23) mg/dl Creatinine 0.67 (0.6-1.2) mg/dl Est Cr Clr Drug Dosing 93.3 ml/min eGFR 100.00 BUN/Creatinine Ratio 37.3 H (10-20) Glucose 93 (70-99(Fasting)) mg/dl Uric Acid 4.7 (2.6-7.2) mg/dl Calcium 8.5 L (8.6-10.3) mg/dl C-Reactive Protein 3.63 H (0-0.5) mg/dl PG Care Time/CCT Total # of Minutes Spent Total Time Spent with Patient: Total time spent is greater than 50% in coordination of care (as documented) at patient's floor/unit and/or counseling patient: Coding Level of Care Code 74991 SUB INP/OBS CARE 2/35MIN Diagnoses Cellulitis of right leg L03.115 History of heart valve replacement with mechanical valve Z95.2 Aortic dissection I71.00 Marfan syndrome Q87.40 Hypertension I10 Asthma J45.909
[2025-02-26 07:22] LABS: Hematocrit (blood only) 39.2 % (37.0-47.0); Hemoglobin 12.6 g/dl (12.0-16.0); Immature Granulocytes # (auto) 0.00 K/uL (0.01-0.20); Immature Granulocytes % (auto) 0.0 %; Mean Corpuscular Hemoglobin 28.2 pg (25.0-34.0); Mean Corpuscular Volume 87.7 fL (80.0-100.0); Platelet Count 394 K/uL (130-400); RDW Standard Deviation 43.7 fL (36.4-46.3); Red Blood Count 4.47 M/uL (4.20-5.40); White Blood Count 4.64 K/ul (4.8-10.8)
[2025-02-26 07:46] VITALS: BP 157/75; PULSE 75; TEMP 97.9; O2SAT 93
[2025-02-26 07:46] LABS: INR 1.9 (0.9-1.1); Prothrombin Time 19.2 Seconds (9.0-12.0)
[2025-02-26 07:48] LABS: Anion Gap 4.0 (3-11); Blood Urea Nitrogen 24.0 mg/dl (6-23); Calcium 8.7 mg/dl (8.6-10.3); Carbon Dioxide 32.0 mmol/L (21-32); Chloride 105.0 mmol/L (98-107); Creatinine Clr Calc Pharmacy 94.7 ml/min; Glucose 87.0 mg/dl (70-99(Fasting)); Potassium 4.2 mmol/L (3.5-5.1); Sodium 141.0 mmol/L (136-145)
--- NOTE | 2025-02-26 08:08 | Hospitalist Progress Note ---
Date of Service February 26, 2025 Assessment & Plan (1) Cellulitis of right leg: (2) History of heart valve replacement with mechanical valve: (3) Aortic dissection: (4) Marfan syndrome: (5) Hypertension: (6) Asthma: Plan 59yo female presented after failure of outpatient antibiotics with Bactrim/Clindamycin since this past requiring admission for treatment of cellulitis with IV antibiotics. ?related to possible scratch from dogs with feeding but no clear opening. No recent tick bites/fever/chills. On coumadin w/ mechanical aortic valve replacement and INR never below goal and actually 4.3 yesterday and held last evening with INR 3.4 today with goal 2-3. Suspect eleva tion in setting o bactrim use, no bleeding reported and is on baby aspirin 81mg daily. #RLE Cellulitis Ceftriaxone/Daptomycin IV CRP trending down, 7.4--> 4.8 -> 3.6 Pain control, toradol effective, additional 15mg IV for today. Uric not elevated 4.7 Continue elevation, marking Transitioning to Clindamycin PO for 02/26 AM and if continued improvement can plan to dc on course given supervising provider believes should have covered but possibly not given enough time. Monitor for additional med change/need for imaging #Aortic valve replacement, chronic anticoagulation use Aortic valve placement >10 years ago, also aorta repair for dissection On coumadin 6mg daily, follows [facility] INR 3.4 on admission (prior 4.3, held her PM dose 02/21) INR 2.0 on 02/23 and resumed coumadin 6mg INR 1.4 and ordered Lovenox 80mg BID for 02/24 and continue coumadin to bridge--> INR 1.6 and continues w/ Lovenox and monitoring INR in AM--> 1.9 and will ensure has at dc and repeat INR tomorrow #HTN - continue diltiazem 120mg BID, losartan daily and BP 122/78 and has been continued #HLD - no longer on statin, maintained with diet/exercise per patient. #Mood/depression - stable, continue pristiq/lamictal. xanax available as needed #IV infiltration - L arm, leaking overnight and removed 02/24 Nursing reported no infiltration but does appear w/ some edema to region but pulses/sensation intact. Warm compress/elevation - monitor for any issues, have added lovenox SQ bid given INR but pulses present/doesn't appear w/ DVT at this time Dispo: continued inpatient stay and transitioning to PO abx for am/monitoring through afternoon but if continued improvement by lunch can plan to dc on PO to complete course Remains on lovenox until INR in range Admission and Anticipated Discharge Date Admission Date: February 22, 2025 Results & Data Results & Data Vital Signs (Past 12 Hours) Vital Signs Temp Pulse Resp BP Pulse Ox O2 Del Method 02/26/25 07:45 36.6 C 75 16 157/75 H 93 Room Air PG Care Time/CCT Total # of Minutes Spent Total Time Spent with Patient: Total time spent is greater than 50% in coordination of care (as documented) at patient's floor/unit and/or counseling patient: Coding Diagnoses Cellulitis of right leg L03.115 History of heart valve replacement with mechanical valve Z95.2 Aortic dissection I71.00 Marfan syndrome Q87.40 Hypertension I10 Asthma J45.909
[2025-02-26] MEDS: CLINDAMYCIN HCL 150 MG CAP PO SCH (09:36)
--- NOTE | 2025-02-26 11:04 | Discharge Summary ---
Discharge Summary Date of Service February 26, 2025 Principal Dx & Hospital Course #1 = Principal Diagnosis (1) Cellulitis of right leg: (2) History of heart valve replacement with mechanical valve: (3) Aortic dissection: (4) Marfan syndrome: (5) Hypertension: (6) Asthma: Plan #RLE Cellulitis #Aortic valve replacement, chronic anticoagulation use 59yo female presented for RLE cellulitis after possible scratch to medial ankle from her dogs. Rx for Bactrim x 2 days and worsened over weekend while traveling and went to [facility] (note reviewed) and switched to Clindamycin but presented to ER for worsening pain/redness concerning for failure of outpatient antibiotics vs not enough treatment duration vs need for initial IV therapy prior to step down. INR was 4.3 prior per patient report and she held her coumadin (hx mechanical heart valve) and repeat 3.4 on admission and coumadin held temporarily but pulses present and never below range. WBC wnl on admission and afebrile, not septic appearing and no procal/blood cultures taken given such but did note leukopenia.No abscess on examination. Provided with Ceftriaxone/Daptomycin in ER and continued x 4 days inpatient (4th dose per patient request) with improvement in CRP 7.4--> 4.8 -> 3.6--> 2.5 prior to discharge and was transitioned to PO Clindamycin given concerns for needing better strep coverage and clindamycin should have been sufficient (however also note could have had allergy type reaction from bactrim given timeline/eosinophil elevation on admission). Lyme negative, uric acid not elevated. Was provided toradol for pain control/inflammatory effects with good improvement and repeated prior to dc. No bleeding reported but cautious use nsaids w/ coumadin. INR did drop to 2.0 on 02/23 and resumed her coumadin at 6mg daily however dropped to 1.4 on 02/24 and was placed on Lovenox 80mg SQ BID for bridging with her mechanical valve. INR up to 1.9 prior to dc and discussed has a home machine and to continue BID Lovenox at discharge and check INR in AM. She is going to hold off green leafy vegetable/salads as typically has lots until in range and then slowly reintroduce to prior level and can reach back to her anticoagulation clinic for ongoing instructions (was on phone w/ them day of discahrge in AM, good knowledge and prior use of lovenox but did send rx in case her prior are ) Discussed to mointor for any repeat fever/chills, worsening redness but appears MUCH improved. TO call over weekend if any issues to prevent readmission. Discussed probiotic/mointoring for any diarrhea on Clindamycin (no new rx sent, reviewed prior 300mg QID) and has enough to complete recommended additional 6 days for 10 day course. #HTN - continued diltiazem 120mg BID (changed on med list at pr), losartan 50mg daily. BP 157/75 and stable #HLD - no longer on statin, maintained with diet/exercise per patient and following w/ functional medicine. Follow up discussions outpt rec'd #Mood/depression - stable, continue pristiq/lamictal. xanax available as needed #IV infiltration - to L arm prior from IV site, pulses present/warm compress provided and continued w/ coumadin/lovenox to bridge when not in range and do not suspect any issues given resolved Notes For Next Care Provider Ensure resolution in cellulitis w/ completion of treatment. No blood cx drawn on admission but if any ongoing issues should be entertained in follow up but would start w/ imaging (noting no abscess/fluid collection appreciated and improved w/ antiinflammatories and abx, uric acid not elevated) Sent on Lovenox SQ BID for bridge until INR 2-3, remained on coumadin Monitor for diarrhea on abx Medication Changes From Visit No new rx for Clinda but confirmed w/ picture in room on dosing and to complete additional 6 days for 10 day course Lovenox 80mg SQ BID until INR in range Admission HPI Per Admitting Provider 59yo female with PMHx marfans, aortic dissection/aortic valve replacement, HTN, HLD presented with redness/swelling to the right lower leg since this past concerning for cellulitis. Allergy to PCN w/ hives. Initially placed on Bactrim by PCP but without improvement but placed on Clindamycin on Saturday morning. Patient evaluated in C7, currently resting in bed. Reports being hungry. No pain at present but reports was on Bactrim since this past and did not have any improvement and was traveling this weekend and went to [facility] as did not have improvement and they added Clindamycin. She has cantu on her leg for the "dark red" and "light red" from the cellulitis. Reports history of cellulitis over a decade ago. No antibiotic resistance reported in the past. Tolerated the ER antibiotics and discussed admission for continued antibiotics/monitoring. No history of gout. No trauma/open wound but does report she has dogs and that they get excited during feeding time and that she might have had a faint scratch as the source initially. On coumadin 6mg daily but held her dose last evening. Reports INR was 4.3 yesterday, currently 3.4. Goal INR 2-3 for history mechanical aortic valve (as well as grafting aorta due to dissection). No history of clot in the past but does report has had positive ddimer in the past. No fever/chills, chest pain, shortness of breath, abdominal pain, nausea/vomiting/diarrhea at this time. Confirmed home medications: Diltiazem 120mg BID HCTZ 12.5mg ISMN -- NO MORE Losartan 50mg once daily Pristiq 100mg -- someone to bring in as non-formulary Simvastatin - no longer, refuses, control through diet. Coumadin 6mg daily Aspirin 81mg Lamotrigine 100mg daily Xanax 0.5mg -- 1/2 tablet as needed Given Ceftriaxone/Daptomycin in ER. Agreeable to admission for ongoing antibiotic for cellulitis. Hungry and hasn't eaten yet today, RN in ER notified to provide something in meantime. Full code as discussed. Admission Exam Per Admitting Provider General: 59yo female, marfanoid appearance, laying in bed, NAD HEENT: head atraumatic, normocephalic, mmm, trachea midline Resp: even/unlabored, no wheezing/rales, on room air CV: regular, +systolic click c/w aortic valve replacement, no pitting edema/calf tenderness, pulses present, cap refill wnl GI: +BS, slight distended but soft/nontender no french MSK/Neuro/Skin: not confused, no slurred speech, answering questions appropriately RLE w/ erythema from ankle to mid gutierrez, within markings +tenderness/warmth, edema to mid gutierrez - some blistering to medial ankle No purulent drainage/open lesions at this time pulses present/intact, cap refill wnl Psych: AOx3, cooperative with exam Discharge Exam General: 59yo female sitting up in bed, on the phone, NAD HEENT: head atraumatic, mmm, trachea midline Resp: even/unlabored, no wheezing/rales, on room air CV: regular, +systolic click c/w aortic valve replacement, pulses present, cap refill wnl GI: +BS, soft/NT no french MSK/Neuro/Skin: not confused, no slurred speech, answering questions appropriately, moving all extremities RLE w/ SIGNIFICANT improvement in erythema/warmth/edema, no overt tenderness, lateral ankle almost completely resolved, still faint pink/warmth to medial ankle but no drainage/abscess or appreciable fluid collection Psych: AOx3, anxious at times (mom on hospice) but pleasant/cooperative Discharge Plan Discharge Items Patient Disposition: Home - Self-Care Reason For Visit: RLE CELLULITIS, FAILURE OUTPATIENT ANTIBIOTICS Discharge Diagnosis: Right leg cellulitis Condition on Discharge: Fair Goals: You have been hospitalized for an acute medical problem. During your stay at [facility], we have made an effort to correct the problem that brought you to the hospital while keeping you as comfortable as possible. Medications were used to bring your condition under control and your discharge instructions will include directions for any medications you should take after leaving the hospital. Please make sure you see your Primary Care Provider as part of your follow up plan. Activity: As commented below Non-emergency contact: Primary Care Provider Call non-emergency contact if: you have any medication questions, your symptoms worsen, your pain is not controlled and you have a fever Follow-up/Referrals: Gosia Ye, OTR [Primary Care Provider] - (Patient will make own follow up appointment as needed.) Diet: Heart Healthy Addtl Attending Provider Instructions: You have been hospitalized for cellulitis after failure of outpatient antibiotics and suspect you may have needed a couple doses of IV antibiotics prior to the clindamycin as discussed and do suspect potentially from your dogs scratching the area causing the issue. CRP has continued improvement 7.4--> 4.8--> 3.6 --> 2.5 prior to discharge and have had significant improvement in cellulitis. We recommend completing the course of CLINDAMYCIN as discussed. You received 4 days of IV antibiotics and should complete another 6 days of the clindamycin. Please monitor for any diarrhea/alert primary care. As discussed, INR almost in range but are sending on lovenox twice daily 80mg until INR back in range. If back in range tomorrow could stop and recommend follow up with your anticoagulation clinic. Please continue elevation. Return if any increased redness/pain, fever or other symptoms concerning for you. Take care! Pending Studies at Discharge: No Stand-Alone Forms: My [facility], Smoking Cessation Medications and DC Order Prescriptions: New clindamycin HCl 150 mg Capsule 150 mg PO Q6 6 Days Qty: 0 0RF enoxaparin [Lovenox] 80 mg/0.8 mL Syringe 80 mg subcut Q12H 3 Days Qty: 4.8 0RF Continued cetirizine [Zyrtec] 10 mg Tablet 0 mg PO DAILY Patient Comments: 02/22 otc unable to verify aspirin 81 mg Tablet,Delayed Release (Dr/Ec) 0 mg PO DAILY Patient Comments: 02/22 otc unable to verify cholecalciferol (vitamin D3) [Vitamin D3] 1,000 unit Tablet 0 unit PO DAILY Patient Comments: 02/22 otc unable to verify hydrochlorothiazide 12.5 mg Tablet 12.5 mg PO DAILY losartan 50 mg tablet 50 mg PO DAILY alprazolam 0.5 mg tablet 0.5 mg PO BID MDD 2 PRN (Reason: Other) warfarin 6 mg tablet 6 mg PO UD Rx Instructions: TAKE ONE TABLET BY MOUTH DAILY DIRECTED BY THE [facility]. fluticasone propion-salmeterol 230-21 mcg/actuation HFA aerosol inhaler 2 puff INHALATION BID desvenlafaxine succinate 100 mg tablet extended release 24 hr 100 mg PO DAILY Changed diltiazem HCl 120 mg Capsule,Extended Release 12 Hr 120 mg PO BID Qty: 0 0RF Discharge Orders: Discharge Order (Routine); Ordered 02/26/25 Ordered By: Denise Morales Admission Data Admit Date/Time: 02/22/25 10:52 Attending Provider: Chris Bertrand Admit Provider: Chris Bertrand Primary Care Provider: Gosia Ye Other Providers: Chris Bertrand Hospital Stay Data Consultations 02/22/25 10:29 ED Decision to Admit Stat Discharge Instructions Given to Patient (Per Discharging Provider) You have been hospitalized for cellulitis after failure of outpatient antibiotics and suspect you may have needed a couple doses of IV antibiotics prior to the clindamycin as discussed and do suspect potentially from your dogs scratching the area causing the issue. CRP has continued improvement 7.4--> 4.8--> 3.6 --> 2.5 prior to discharge and have had significant improvement in cellulitis. We recommend completing the course of CLINDAMYCIN as discussed. You received 4 days of IV antibiotics and should complete another 6 days of the clindamycin. Please monitor for any diarrhea/alert primary care. As discussed, INR almost in range but are sending on lovenox twice daily 80mg until INR back in range. If back in range tomorrow could stop and recommend follow up with your anticoagulation clinic. Please continue elevation. Return if any increased redness/pain, fever or other symptoms concerning for you. Take care! Supervising Physician Co-Signing Physician Notes The patient was not seen by me. The chart was reviewed. Case discussed with KIRK Giron. Agree with assessment and plan Total Time Total Time Spent Total Time Spent (In Minutes): 45 Coding Level of Care Code 19166 INP/OBS DISCH >30 MIN Diagnoses Cellulitis of right leg L03.115 History of heart valve replacement with mechanical valve Z95.2 Aortic dissection I71.00 Marfan syndrome Q87.40 Hypertension I10 Asthma J45.909
[2025-02-26] MEDS: KETOROLAC TROMETHAMINE 15 MG/ML VIAL IV ONE (12:22)
== END 2025-02-26 12:57 | disposition home or self-care (01) | DRG 603 ==
LOC: SUATTDRO → ED 08:46 → INTOOBSV 10:52 → EDINP 10:52 → 3W 16:25